=== PATIENT | female | born 1980 | race Caucasian/White ===

== ENCOUNTER 2018-09-26 00:48 | Emergency (ER) | payer OTHER ==
[~2018-09-26] VITALS: Ht 172.7 cm; Wt 59.1 kg
[2018-09-26] MEDS ORDERED: ondansetron/PF 4mg/2ml inj IV ONE (01:30)
[2018-09-26] MEDS ORDERED: morphine 4 MG/ML inj SYRINge IV ONE (01:30)
[2018-09-26] MEDS ORDERED: normal saline 1000ML IV soln IVB ONE (01:30)
[2018-09-26 01:48] LABS: PROTHROMBIN TIME 10.1 SECONDS (9.0-12.0)
[2018-09-26 01:51] LABS: ALANINE AMINOTRANSFERASE 42 U/L (12-78); ALBUMIN 3.8 G/DL (3.4-5.0); ALBUMIN/GLOBULIN RATIO 1.3 (1.1-1.5); ALKALINE PHOSPHATASE 105 IU/L (46-116); ANION GAP 11 (8-16); ASPARTATE AMINO TRANSFERASE 27 U/L (10-37); BASOPHILS % (AUTO) 0.2 % (0-1); BILIRUBIN,TOTAL 0.7 MG/DL (0.1-1.0); BLOOD UREA NITROGEN 16 MG/DL (7-18); BUN/CREATININE RATIO 27.1 (6.6-38.0); CHLORIDE 104 MMOL/L (99-107); CREATININE 0.59 MG/DL (0.40-0.90); EOSINOPHILS # (AUTO) 0.1 X10'3 (0-0.9); EOSINOPHILS % (AUTO) 1.8 % (0-6); GLUCOSE 131 MG/DL (70-104); HEMATOCRIT 33.4 % (35.0-45.0); HEMOGLOBIN 10.6 g/dl (12.0-16.0); LYMPHOCYTES # (AUTO) 1.1 X10'3 (1.1-4.8); LYMPHOCYTES % (AUTO) 26.3 % (21-51); MEAN CORPUSCULAR HEMOGLOBIN 20.9 PG (27.0-31.0); MEAN CORPUSCULAR HGB CONC 31.8 % (33.0-36.5); MEAN CORPUSCULAR VOLUME 65.9 FL (78-98); MEAN PLATELET VOLUME 8.4 FL (7.4-10.4); MONOCYTES # (AUTO) 0.3 X10'3 (0-0.9); MONOCYTES % (AUTO) 7.1 % (2-12); NEUTROPHILS # (AUTO) 2.7 X10'3 (1.8-7.7); NEUTROPHILS % (AUTO) 64.6 % (42-75); PLATELET COUNT 184 X10'3 (140-440); POTASSIUM 3.6 MMOL/L (3.5-5.1); RED BLOOD COUNT 5.07 X10'6 (4.20-5.60); RED CELL DISTRIBUTION WIDTH 15.1 % (11.5-14.5); SODIUM 141 MMOL/L (135-145); TOTAL CARBON DIOXIDE 26.5 MMOL/L (24-32); TOTAL PROTEIN 6.8 G/DL (6.4-8.2); WHITE BLOOD COUNT 4.2 X10'3 (4.5-11.0); eGFR > 90 ML/MIN
[2018-09-26] MEDS ORDERED: ONDA4TAB9 PO (02:07)
[2018-09-26 02:29] VITALS: BP 108/62
[2018-09-26 04:39] LABS: ELLIPTOCYTES 1+; HYPOCHROMASIA 1+; MICROCYTOSIS 2+; PLATELET ESTIMATE NORMAL
[2018-09-26 04:41] LABS: LARGE PLATELETS FEW
== END 2018-09-26 02:35 | disposition home or self-care (01) ==
LOC: ER 00:48
DX: R11.2 Nausea with vomiting, unspecified (principal); R10.31 Right lower quadrant pain; Z90.710 Acquired absence of both cervix and uterus; Z79.899 Other long term (current) drug therapy
CPT/HCPCS: 36415; 80053; 85025; 85610; 96361; 96374; 96375; 99283; J2270; J2405; J7030

== ENCOUNTER 2025-09-22 20:33 | Emergency (ER) | payer OTHER ==
[~2025-09-22] VITALS: Ht 172.7 cm; Wt 64.0 kg
--- NOTE | 2025-09-22 20:47 | Physician Documentation ---
History of Present Illness ~ Chief Complaint: Syncope Stated Complaint: SYNCOPE/R ANKLE PAIN Time Seen by MD: 20:44 HPI 45 year old female with PMH thalassemia presenting with a syncopal episode. Per patient she was attending a constitution party, 20 minutes after dinner and 1 manolo she felt dizzy & nauseous. She was able to sit down before losing consciousness, but hit her head and ankle. She states that observers told her she was passed out for about 1 minute. She is endorsing severe ankle pain and swelling, as well as mild pain on her head where she struck it. She still endorses nausea and states Zofran did not help. Denies chest pain, SOB, fever/chills, abdominal pain. Per mother she had an arrhythmia that brought her to the ED when she was younger after cold medicine - unknown which. Resolved shortly after with no other cardiac history. Her family states she is currently very healthy. Medication Reconciliation Allergies: Coded Allergies: No Known Allergies (Unverified , 09/22/25) Scheduled PRN Hydrocodone Bit/Acetaminophen (Hydrocodon-Acetaminophen 5-325), 1 TAB PO Q12H PRN PRN for pain Past Medical History Past Medical History: No Pertinent History, Bowel Obstruction Past Surgical History: hysterectomy Alcohol Use: Occasionally Drug Use: none Lives with: Family Lives In: Home Review of Systems All Other Systems at this time: Reviewed and Negative Constitutional: Denies: fever Cardiovascular: Reports: syncope Neurological: Denies: headache Musculoskeletal: Reports: pain, swelling Physical Exam Vital Signs: Temperature: 97.8, Heart Rate: 67, Respiratory Rate: 18, BP: 106/72, Pulse Oximetry: 100, Weight: 64.000 Physical Exam General: Uncomfortable appearing woman in no acute distress. HEENT: Atraumatic, oropharynx is moist Heart: Regular rate and rhythm, normal-appearing peripheral perfusion. JVD with pulsations bilaterally at 30 degrees elevation. No bruits heard. Lungs: Clear breath sounds bilateral, normal work of breathing, normal oxygen saturation on room air Abdomen: Soft, nondistended, nontender all quadrants Extremities: Warm and well-perfused. Right lateral malleolus swelling and tenderness without erythema. Right lateral calf tenderness at the level of the fibular head. Normal capillary refill in R toes. L leg unremarkable. Neuro: Alert and oriented, no focal deficits Psychiatric: Calm and cooperative with exam Progress Results/Orders Results/Orders Orders - ARLETTE BARRERA MD Foot, Complete (3vw Min) (09/22/25 20:47) Electrocardiogram (09/22/25 21:01) Tib/Fib (09/22/25 22:53) Completed Orders - ARLETTE BARRERA MD Foot, Complete (3vw Min) (09/22/25 20:47) Electrocardiogram (09/22/25 ) Ethanol (09/22/25 21:01) Cbc/Diff (09/22/25 21:01) CMP (09/22/25 21:01) Man Diff (09/22/25 20:43) Tib/Fib (09/22/25 22:53) Ketorolac Trometh 15mg/Ml Vial (Toradol (09/22/25 23:00) Prochlorperazine Inj (Compazine Inj) (09/22/25 23:00) Urinalysis, Cult If Indicated (09/23/25 00:08) Normal Saline 500ml Iv Soln (Sodium Chlo (09/23/25 00:10) Diphenhydramine Inj (Benadryl Inj.) (09/23/25 00:15) Hydrocodone/Apap 5/325mg Tab ([place] 5/32 (09/23/25 00:30) Medications Received in ER Medications (Trade) Dose Ordered Sig/Ar Route PRN Reason Start Time Stop Time Status Last Admin Dose Admin (Toradol injection) 15 mg ONCE ONCE IV 09/22/25 23:00 09/22/25 23:01 DC 09/22/25 23:08 15 MG (Compazine inj) 10 mg ONCE ONCE IV 09/22/25 23:00 09/22/25 23:01 DC 09/22/25 23:08 10 MG ([place] 5/325mg tablet) 1 tab ONCE ONCE PO 09/23/25 00:30 09/23/25 00:31 DC 09/23/25 00:40 1 TAB Vital Signs 09/22/25 09/22/25 09/22/25 09/22/25 20:37 21:00 21:40 23:08 Temp 97.8 Pulse 67 77 Resp 18 16 18 16 B/P (MAP) 106/72 101/66 (78) Pulse Ox 100 97 09/23/25 09/23/25 00:08 00:46 Temp 98.0 Pulse 77 Resp 18 16 B/P (MAP) 106/80 Pulse Ox 97 Laboratory Tests Test 09/22/25 00:00 09/22/25 20:43 09/22/25 23:00 Urine Comment White Blood Count 5.8 Red Blood Count 5.13 Hemoglobin 10.6 L Hematocrit 33.1 L Mean Corpuscular Volume 64.5 L Mean Corpuscular Hemoglobin 20.6 L Mean Corpuscular Hemoglobin Concent 32.0 L Red Cell Distribution Width 15.7 H Platelet Count 218 Mean Platelet Volume 8.4 Neutrophils (%) (Auto) 28.5 L Lymphocytes (%) (Auto) 57.9 H Monocytes (%) (Auto) 10.9 Eosinophils (%) (Auto) 2.3 Basophils (%) (Auto) 0.4 Neutrophils # (Auto) 1.7 L Lymphocytes # (Auto) 3.4 Monocytes # (Auto) 0.6 Eosinophils # (Auto) 0.1 Basophils # (Auto) 0.0 CBC Comment Differential Total Cells Counted 100 Neutrophils % (Manual) 34.0 L Lymphocytes % (Manual) 53.0 H Monocytes % (Manual) 11.0 Eosinophils % (Manual) 2.0 Platelet Estimate Normal Red Blood Cell Morphology Perf Basophilic Stippling Microcytosis 2+ Elliptocytes Few Sodium Level 144 Potassium Level 3.3 L Chloride Level 107 Carbon Dioxide Level 29.4 Anion Gap 8 Blood Urea Nitrogen 16 Creatinine 0.76 Estimated GFR/1.73 m2 82 BUN/Creatinine Ratio 21.1 H Glucose Level 91 Calcium Level 8.9 Total Bilirubin 0.4 Aspartate Amino Transf (AST/SGOT) 21 Alanine Aminotransferase (ALT/SGPT) 28 Alkaline Phosphatase 103 Total Protein 6.9 Albumin 3.8 Globulin 3.1 Albumin/Globulin Ratio 1.2 Chemistry Comments Ethyl Alcohol Level 29 H Urine Specimen Description Cln catch midstream Urine Color Yellow Urine Clarity Clear Urine pH 6.5 Urine Specific [place] 1.020 Urine Protein Negative Urine Glucose (UA) Negative Urine Ketones Negative Urine Occult Blood Negative Urine Nitrite Negative Urine Bilirubin Negative Urine Urobilinogen 0.2 Urine Leukocyte Esterase Negative Urine Culture Indicated Not ind Volume Urine Centrifuged 10 ml EKG/XRAY/CT/US/VASC/MRI Bone/Soft Tissue X-Ray (Ext.) : Additional Comment I personally interpreted the x-ray, and it shows: X-ray of the right lower extremity shows a distal fibular fracture, nondisplaced. No tibia fracture. No fracture of the forefoot Medical Decision Making Additional information obtaine: family Findings Further history obtained from the family Differential Dx:Considerations: Include: CVA, dehydration, dysrhythmia, electrolyte disorder, pulmonary embolus, vasovagal Additional Information The patient presents with a syncopal episode. Here in the ED she is otherwise well-appearing except for some pain to her right ankle. Labs were overall unremarkable except for some mild hypokalemia. EKG without acute changes. Was given nausea medicine and IV fluids. X-ray of the foot shows no fracture and x- ray of the leg does show a distal fibular fracture. She was placed in a walking boot and given crutches. She was given pain medication. She may have hit her head but has no headache or other findings to suggest intracranial hemorrhage or dangerous head injury. Overall, no dangerous cause identified for her symptoms. She will be discharged home with symptomatic treatment, orthopedic clinic follow up, and strict return precautions. Hopefully this was a vasovagal type episode, which I explained to the patient although there was no test to prove this. Departure Time of Disposition: 00:31 Impression: Primary Impression: Syncope Additional Impression: Fracture of distal end of fibula Condition: Stable Discharge Instructions: Nondisplaced Fibular Ankle Fracture Treated With Immobilization, Syncope, Adult Referrals: NO PRIMARY CARE PROVIDER (PCP) Prescriptions Hydrocodone Bit/Acetaminophen (Hydrocodon-Acetaminophen 5-325) 5 Mg-325 Mg Tablet 1 TAB PO Q12H PRN PRN for pain for 5 Days, #10 TAB Prov: ARLETTE BARRERA MD 09/23/25 Education Educated: Patient, Family Educated regarding: diagnosis, treatment, need for follow up Signature Scribe Signature: kay Attestation: ARLETTE Walls MD Sep 22, 2025 20:47
--- NOTE | 2025-09-22 20:57 | ELECTROCARDIOGRAPH REPORT ---
[facility] Test Date: 2025-09-22 Test Time: 20:54:41 Pat Name: ALEXANDER TODD Department: [facility] Patient ID: [facility]-[id number] Room: Gender: F Drama Director: : 1980 Requested By: ARLETTE BARRERA Order Number: [id number] Reading MD: Dr. STEVEN Navarro Measurements Intervals Indian Rate: 60 P: 83 OK: 157 QRS: 80 QRSD: 117 T: 73 QT: 425 QTc: 425 Interpretive Statements Sinus rhythm Nonspecific intraventricular conduction delay Electronically Signed On 09-23-2025 19:40:[address] STEVEN Navarro Please click the below link to view image of tracing.
--- NOTE | 2025-09-22 21:18 | RADIOLOGY REPORT ---
DI FOOT, COMPLETE (3VW MIN) COMPARISON: None INDICATION: GLF, RIGHT ANKLE FINDINGS/IMPRESSION: No acute fracture or dislocation.
[2025-09-22 21:31] LABS: CREATININE 0.76 MG/DL (0.40-0.90); ETHANOL 29 MG/DL (<10); TOTAL CARBON DIOXIDE 29.4 MMOL/L (24-32); eCRCL 94 ML/MIN; eGFR 82 ML/MIN
[2025-09-22 22:01] LABS: MEAN PLATELET VOLUME 8.4 FL (7.4-10.4); RED CELL DISTRIBUTION WIDTH 15.7 % (11.5-14.5)
[2025-09-22 22:21] LABS: EOSINOPHILS % (MANUAL) 2.0 % (0-6); LYMPHOCYTES % (MANUAL) 53.0 % (21-51); MONOCYTES % (MANUAL) 11.0 % (2-12); NEUTROPHILS % (MANUAL) 34.0 % (42-75)
[2025-09-22 22:22] LABS: ELLIPTOCYTES FEW; PLATELET ESTIMATE NORMAL
[2025-09-22] MEDS: ketorolac trometh 15mg/ml vial 15 MG/ML ML IV ONE (23:08)
--- NOTE | 2025-09-22 23:42 | RADIOLOGY REPORT ---
PROCEDURE: DI TIB/FIB 2 VWS 09/22/2025 10:59 PM TECHNIQUE: DI TIB/FIB 2 VWS INDICATION: lateral right ankle pain and fibular head pain after fall COMPARISON: None FINDINGS/IMPRESSION: Mild nondisplaced cortical irregularity about the distal fibula with overlying soft tissue swelling. Consider dedicated ankle radiographs in further assessment. The knee appears unremarkable.
[2025-09-23 00:18] LABS: LEUKOCYTE ESTERASE ,URINE NEGATIVE (Neg); NITRITES, URINE NEGATIVE (Neg); OCCULT BLOOD,URINE NEGATIVE (Neg)
[2025-09-23] MEDS ORDERED: HYDR-3964 PO (00:33)
[2025-09-23 00:35] LABS: UA COLLECTION TYPE CLN CATCH MIDSTREAM
[2025-09-23] MEDS: normal saline 500ml IV soln 500 ML IV ONE (00:35)
[2025-09-23] MEDS: HYDROcodone/acetaminophen 5mg/325mg tablet PO ONE (00:40)
[2025-09-23 00:46] VITALS: BP 106/80; PULSE 77; RESP 16; TEMP 98; O2SAT 97
== END 2025-09-23 00:47 | disposition home or self-care (01) ==
LOC: ER 20:34
DX: S82.831A Other fracture of upper and lower end of right fibula, initial encounter for closed fracture (principal); R55 Syncope and collapse; Z90.710 Acquired absence of both cervix and uterus; Z72.89 Other problems related to lifestyle; X58.XXXA Exposure to other specified factors, initial encounter; Y93.89 Activity, other specified; Y92.89 Other specified places as the place of occurrence of the external cause; Y99.8 Other external cause status
CPT/HCPCS: 73590; 73630; 80053; 80320; 81003; 85007; 85025; 93005; 96374; 96375; 99285; J0780; J1885; L4360